=== PATIENT | male | born 1950 | race Hispanic/Latino ===

== ENCOUNTER 2021-03-03 08:55 | Day surgery (SDC) | payer OTHER ==
[2021-03-01 15:20] LABS: BASOPHILS % (AUTO) 0.5 % (0.0-5.0); EOSINOPHILS % (AUTO) 1.3 % (0.0-8.0); MEAN CORPUSCULAR HEMOGLOBIN 33.3 pg (27.0-33.0); MEAN CORPUSCULAR HGB CONC 34.3 g/dL (32.0-36.0); MEAN CORPUSCULAR VOLUME 97.1 fL (79-99); MONOCYTES % (AUTO) 9.2 % (3.0-13.0); NEUTROPHILS % (AUTO) 74.5 % (40.0-77.0); PLATELET COUNT (AUTO) 198 K/uL (130-400); RED BLOOD CELL COUNT(AUTO) 4.12 MIL/uL (4.50-6.20); RED CELL DISTRIBUTION WIDTH 12.7 % (11.0-15.5); WHITE BLOOD COUNT (AUTO) 6.1 K/uL (4.8-10.8)
[2021-03-01 15:31] LABS: CREATININE 0.9 mg/dL (0.5-1.5)
[2021-03-01 15:35] LABS: INR 1.02 (0.85-1.15); PROTHROMBIN TIME 11.1 SEC (9.6-11.6)
[2021-03-01 15:37] LABS: PARTIAL THROMBOPLASTIN TIME 28.8 SEC (26.3-35.5)
[2021-03-02 15:59] VITALS: BP 149/81
[2021-03-03] VITALS (17 sets, daily range): BP systolic 134–161; BP diastolic 66–89
[~2021-03-03] VITALS: Ht 172.7 cm; Wt 87.2 kg
[2021-03-03] MEDS: CEFAZOLIN SODIUM 1 GM VIAL IVP SCH ×2 (06:00→10:20)
[~2021-03-03 08:55] MED LIST: ACET-2743 PO; KETO10TA2 PO
[2021-03-03] MEDS ORDERED: LACTATED RINGERS 1000ML 1,000 ML IV ONE (09:05)
[2021-03-03] MEDS ORDERED: IBUP-2784 PO (09:13)
[2021-03-03] MEDS ORDERED: OXYC5TAB3 PO (09:13)
[2021-03-03] MEDS ORDERED: LIDOCAINE PF 100MG/5ML (2%) SYRINGE 5ML ONE (10:21)
[2021-03-03] MEDS ORDERED: PROPOFOL 10 MG/ML 20ML VIAL IV ONE (10:21)
[2021-03-03] MEDS ORDERED: SUCCINYLCHOLINE 200MG/10ML SYR ONE ×2 (10:21→10:23)
[2021-03-03] MEDS ORDERED: ONDANSETRON 4MG INJ ONE (10:21)
[2021-03-03] MEDS ORDERED: DEXAMETHASONE SOD PHOSPHATE 10MG/ML 1ML VIAL ONE (10:21)
[2021-03-03] MEDS ORDERED: MIDAZOLAM HCL 1 MG/ML 2ML VIAL ONE (10:22)
[2021-03-03] MEDS ORDERED: FENTANYL CITRATE PF 50 MCG/1 ML 2ML VIAL ONE ×2 (10:22→11:30)
[2021-03-03] MEDS ORDERED: MEPERIDINE-PF 25 MG/ML SYG ONE ×3 (10:24→12:54)
[2021-03-03] MEDS ORDERED: LIDOCAINE 1%-EPI 1:100,000 20 ML VIAL IJ ONE ×2 (10:27)
[2021-03-03] MEDS ORDERED: EPHEDRINE SULFATE 50 MG/ML AMPULE ONE (10:48)
== END 2021-03-03 14:35 | disposition home or self-care (01) ==
LOC: DAH 08:55
PROVIDERS: ATTEND Otolaryngology
DX: C06.9 Malignant neoplasm of mouth, unspecified (principal); Z20.822 Contact with and (suspected) exposure to COVID-19; C77.0 Secondary and unspecified malignant neoplasm of lymph nodes of head, face and neck; K21.9 Gastro-esophageal reflux disease without esophagitis; F41.9 Anxiety disorder, unspecified; I25.2 Old myocardial infarction; Z98.890 Other specified postprocedural states; Z79.01 Long term (current) use of anticoagulants; Z79.899 Other long term (current) drug therapy
CPT/HCPCS: 36415; 38510; 71045; 80048; 85025; 85610; 85730; 87635; 88305; 88331; 93005; A4215; A4221; A4222; A4223; A4600; A4649 ×2; A4663; A4930 ×2; A6207; A6260; C9803; G0168; J0330 ×2; J0690; J1100; J2001; J2175 ×3; J2250; J2405; J2704; J3010 ×2; J3490 ×3; J7120